=== PATIENT | male | born 1960 | race Caucasian/White ===

== ENCOUNTER 2024-08-16 12:42 | Day surgery (SDC) | payer MEDICARE, SELFPAY ==
[2024-08-16] VITALS (8 sets, daily range): BP systolic 132–149; BP diastolic 83–90; PULSE 64–68; RESP 14–18; TEMP 2.2–36.6; O2SAT 93–100; BMI 41.8
[2024-08-16] MEDS: Lactated Ringers 1,000 ML 15 ML IV (13:29)
[2024-08-16 13:41] LABS: Bedside Glucose 145 mg/dL (74-106)
[2024-08-16] MEDS: Lubricating Jelly 60 GM Tube 30 GM (13:58)
--- NOTE | 2024-08-16 14:09 | PCM.PRE.AN2 ---
ASA Classification* ASA Classification ASA Classification: 3 Assessment & Plan Anesthesia* Anesthesia Assessment Anesthesia Assessment: Discussed sedation and/or anesthesia options, risks, benefits, and alternatives with patient/parents/legal guardian/POA. Questions invited. The patient/parents/legal guardian/POA seems to understand and agrees to proceed with anesthesia plan. Reviewed the physical assessment, medical history, allergy history and patient home medications list prior to surgery/procedure/anesthetic and documented any changes. Performed airway and anesthesia risk assessments. Anesthesia Type Anesthesia Type: MAC History Source History Obtained from:: Patient and Chart Anesthesia Focused Assessment* Temperature: 97.9 F Pulse Rate: 68 Blood Pressure: 132/83 Respiratory Rate: 18 Pulse Ox: 100 Oxygen Delivery Method: Room Air Airway Assessment Mouth opens: >3 cm Mallampati Score: III Teeth Condition: Missing (Patient has 4 remaining teeth. They are tight. 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 When Was Last Pacemaker Check QUESTION #4 FULL TEXT: You/Your Family Experience fever (hyperthermia) with Anesthesia Last Oral Intake Last Oral intake: Last Oral Intake NPO since 22:00 08/16/24 13:14 Meds taken in AM with sips of No 08/16/24 13:14 water? 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 Female No 08/13/24 11:42 HX of Motion Sickness No 08/13/24 11:42 HX of N/V After Surgery No 08/13/24 11:42 Non-Smoker Yes 08/13/24 11:42 Duration of Surgery greater No 08/13/24 11:42 than 60 minutes Number of Risk Factors 1 08/13/24 11:42 PONV Score Low Risk 08/13/24 11:42 Height & Weight Height & Weight: Anesthesia: Height & Weight Height 5 ft 7 in 08/16/24 13:14 Weight: 121 kg 08/16/24 13:14 Body Mass Index (BMI) 41.8 08/16/24 13:14 Respiratory Assessment Respiratory Assessment - bevel gear generator operator: Respiratory Tract Infection Hx - bevel gear generator operator Hx Respiratory Tract Infection No 08/13/24 11:42 STOP Sleep Apnea STOP Sleep Apnea - bevel gear generator operator: STOP Sleep Apnea - bevel gear generator operator Hx Hypertension Yes: CONTROLLED WITH MEDS 08/13/24 11:42 Hx Sleep Apnea No 08/13/24 11:42 CPAP BIPAP Do you snore loudly (louder No 08/13/24 11:42 than talking or can be heard Do you often feel tired/ No 08/13/24 11:42 fatigued/ sleepy during daytime? Has anyone observed you stop No 08/13/24 11:42 breathing during sleep? STOP Results Negative 08/13/24 11:42 QUESTION #5 FULL TEXT : Do you snore loudly (louder than talking or can be heard through closed doors)? 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 Specify any problems Hx of Preganancy in last 3 N/A 08/13/24 11:42 Months Nurse Filling Out Transfusion [email or web address] 08/13/24 11:42 & Questions: Date: 08/13/24 08/13/24 11:42 Time: 11:48 08/13/24 11:42 Patient unable to answer at this time (ie. confused, unrespo /Reproduction History /Reproductive History - bevel gear generator operator: /Reproductive Hx- bevel gear generator operator Hx Now Gestational Age (in weeks): EDC: Hx Hx Para Hx Section SAB Active Medications Active Medications: Current Medications Generic Name Dose Route Start Last Admin Trade Name Freq PRN Reason Stop Dose Admin Lactated Ringer's 1,000 mls @ 15 mls/hr 08/16/24 13:00 08/16/24 13:29 IV 15 mls/hr .Q48H CÉSAR Administration PFSH Medical History Skin cancer Temporal arteritis syndrome Multiple lipomas Wears dentures Wears glasses History of steroid therapy Diabetes Former smoker Hypertension Home Medications ?Medication ?Instructions ?Recorded ?Last Taken ?Type ascorbic acid (vitamin C) 500 mg 1 g PO DAILY 08/13/24 08/15/24 History chewable tablet (Acerola C) aspirin 81 mg tablet,delayed 81 mg PO DAILY 08/13/24 08/13/24 History release (Adult Aspirin Regimen) glipizide 2.5 mg tablet 2.5 mg PO QPM 08/13/24 08/15/24 History lisinopril 20 mg tablet 20 mg PO DAILY 08/13/24 08/15/24 History metformin 1,000 mg tablet 1,000 mg PO BID 08/13/24 08/15/24 History omega 9-jrt-dye-fish oil 1,200 mg 1 cap PO DAILY 08/13/24 08/15/24 History (144 mg-216 mg) capsule (Fish Oil) prednisone 20 mg tablet 40 mg PO BID 08/13/24 08/15/24 History rosuvastatin 5 mg tablet 5 mg PO DAILY 08/13/24 08/15/24 History semaglutide 1 mg/dose (4 mg/3 mL) 1 mg subcut QWEEK 08/13/24 08/10/24 History subcutaneous pen injector (Ozempic) Allergy/AdvReac Type Severity Reaction Status Date / Time Penicillins (PCN) AdvReac Hives Verified 08/14/24 09:47 tirzepatide (From [facility]) AdvReac Hives Verified 08/14/24 09:47 Surgical History (Updated 08/16/24 @ 14:[address] Juan Vance MD) Lipoma Malignant neoplasm determined by biopsy of skin Social History Smoking Status: Former smoker alcohol intake: never substance use type: does not use Review of Systems (Anesthesia) ROS Narrative System reviewed and no additional complaints, except as documented.
--- NOTE | 2024-08-16 14:17 | PCM.HP.BLA ---
History and Physical Date of Admission: 08/16/24 Intake Vital Signs 08/14/2508:45 Height 5 ft 7 in Weight: 271 lb 6 oz BMI 42.5 BP 146/78 H Blood Pressure Location Lt brachial Position Sitting Respiration 18 Pulse 74 Pulse Source Monitor Temp 97.8 F Temp Source Temporal Pulse Oximetry (%) 98 Oxygen Delivery Method room air Intake Visit Reasons: TEMPORAL ARTERY BIOPSY Chief Complaint: temporal artery biospy Accompanied by: Is patient in pain?: No Allergies Penicillins (PCN) Adverse Reaction (Verified 08/14/24 09:47) Hivestirzepatide (From [facility]) Adverse Reaction (Verified 08/14/24 09:47) Hives Medications ?Medication ?Instructions ?Recorded ?Confirmed ?Type ascorbic acid (vitamin C) 500 mg 1 g PO DAILY 08/13/24 08/14/24 History chewable tablet (Acerola C) aspirin 81 mg tablet,delayed 81 mg PO DAILY 08/13/24 08/14/24 History release (Adult Aspirin Regimen) glipizide 2.5 mg tablet 2.5 mg PO QPM 08/13/24 08/14/24 History lisinopril 20 mg tablet 20 mg PO DAILY 08/13/24 08/14/24 History metformin 1,000 mg tablet 1,000 mg PO BID 08/13/24 08/14/24 History omega 5-abn-ofp-fish oil 1,200 mg 1 cap PO DAILY 08/13/24 08/14/24 History (144 mg-216 mg) capsule (Fish Oil) prednisone 20 mg tablet 40 mg PO BID 08/13/24 08/14/24 History rosuvastatin 5 mg tablet 5 mg PO DAILY 08/13/24 08/14/24 History semaglutide 1 mg/dose (4 mg/3 mL) 1 mg subcut QWEEK 08/13/24 08/14/24 History subcutaneous pen injector (Ozempic) Have you fallen in the past year?: No PFSH Medical History (Updated 08/14/24 @ 09:45 by Tamera Zepeda LPN) Skin cancer Temporal arteritis syndrome Multiple lipomas Wears dentures Wears glasses History of steroid therapy Diabetes Former smoker Hypertension Social History (Updated 08/14/24 @ 09:45 by Tamera Zepeda LPN) Smoking Status: Former smoker alcohol intake: never substance use type: does not use HPI HPI HPI: Patient is a 64-year-old male with vision changes in his right eye. He was started on steroids for possible giant cell arteritis. He was sent here for temporal artery biopsy ROS General General: No weight change, appetite, fatigue, colon cancer, breast cancer or weakness HEENT HEENT: Yes eye injury; No difficulty swallowing, eye surgery, swollen glands or hoarseness Endo Endocrine: Yes diabetes mellitus; No thyroid disease, thyroid cancer, Hair loss, heat intolerance or cold intolerance Skin Skin: No rash or changing moles Musc Musculoskeletal: No back problems, arthritis, rheumatoid arthritis, gout or joint pain Cardio Cardiovascular: Yes high blood pressure; No murmur, pacemaker, heart disease, atrial fibrillation, heart attack, heart stent, palpitations, shortness of breath with exertion or chest pain Psych Psychiatric: No depression, anxiety or hearing voices Resp Respiratory: No shortness of breath, No sleep apnea, No cough, No COPD, No asthma, No emphysema and No wheezing Gastro Gastrointestinal: No abdominal pain, No nausea or vomiting, No diarrhea, No constipation, No blood in stool, No acid reflux, No hemorrhoids, No ulcers, No gallbladder problem and No black,tarry stools Alex Hematologic: Yes blood thinners, No blood disorders, No bleeding, No anemia and No blood clots Additional Details: aspirin Neuro Neurologic: No numbness, No tingling and No weakness Exam Const General: cooperative Orientation: alert and oriented x3 HENMT Head: normal to inspection Neck Neck: normal visual inspection and full ROM Chest Chest palpation & inspection: normal inspection of the chest Resp Effort & Inspection: normal respiratory effort Auscultation: clear to auscultation bilaterally Cardio Rate: regular rate Rhythm: regular rhythm GI Inspection: non-distended Palpation: soft and nontender Skin General: no rashes or lesions noted Neuro General: patient alert and patient oriented x3 Extrem General: full ROM Psych Appearance: grossly normal Mental Status: mental status grossly normal Assessment and Plan Assessment and Plan (1) Temporal arteritis syndrome: Status: Acute Plan: The patient has possible temporal arteritis. He was sent here for temporal artery biopsy. I discussed this with him in detail. I discussed the procedure as well as the risks including but not limited to bleeding, infection, nerve injury, hematoma formation. Patient understands the risks and is willing to proceed. I have him on the schedule for [place]jo. Inder Agustin MD Pager: [facility] [address] [place] [address], [address] [place] [address] Office: I have examined the patient and the H&P has been reviewed. There are no clinical changes since date of exam.
--- NOTE | 2024-08-16 14:30 | TEM_PTH ---
PATIENT: DAVID PENALOZA LOC: [facility] [place] U#:[id number] AGE/SX: 64/M ROOM: RE08/16/[address]: Dr. Inder Agustin MD : 1960 BED: DIS: 08/16/2024 SPEC #: [id number] RECD: 08/16/24 15:39 STATUS: NIGEL SCOTTIE #: [id number] MARLEN: 08/16/24 14:[address]: Inder Agustin DEPT: SURGICAL PATHOLOGY RECD BY: Leonard Sneed ENTERED: 08/16/24 15:56 SP TYPE: TEMPORAL OTHR DR: Dr. Elier Acosta, DO Tissues: A - Temporal region Procedures: Elastin Stain (control) Special Stain Group I Surgery Specimen Level IV HEADER OPERATION: Temporal artery biopsy PRE-OP DIAGNOSIS: Temporal arteritis syndrome TISSUE SUBMITTED: A- Right temporal artery biopsy MICROSCOPIC DIAGNOSIS A. Artery, temporal, right, temporal arteritis syndrome, biopsy: - Negative for inflammation and granulomas. - Elastin stain highlights normal internal elastic lamina. MICROSCOPIC DESCRIPTION Slides are reviewed. All matched controls reacted appropriately. These tests were developed and their performance characteristics determined by [facility]. They may not have been cleared or approved by the U.S. Food and Drug Administration. The FDA has determined that such clearance or approval is not necessary.? The above immunohistochemical/dualISH?markers are reviewed by the Pathologist. GROSS DESCRIPTION Received in formalin labeled with the patient's name and date of . Designated as right temporal artery biopsy is a 1.7 cm in length by 0.2 cm in diameter pink-red vessel. Entirely submitted 1 cassette. [place] 08/16/2024 CPT:23728, 44241
[2024-08-16] MEDS: Lidocaine 1% (20 ml mdv) 20 ML Vial (14:59)
--- NOTE | 2024-08-16 15:12 | PCM.OPRPT ---
Operative Report (Standard) Operative Information Date of Procedure: 08/16/24 Pre-Operative Diagnosis: Right temporal arteritis syndrome Post-Operative Diagnosis: Same Surgery/Procedure Performed: Right temporal artery biopsy mobile solutions architect: Yes Produce Department Supervisor: Dameon Humphrey Tasks completed by sales operations assistant: Opening, Closing and Retracting Type of Anesthesia: Local MAC RN Documented Start/Stop Times: Operation Date: 08/16/24 14:30 Case Time Into Pre-Op 08/16/24 12:52 Anesthesia Start 08/16/24 14:32 Into Room 08/16/24 14:32 Procedure Start 08/16/24 14:48 Procedure End 08/16/24 15:06 Anesthesia End 08/16/24 15:10 Out of Room 08/16/24 15:10 Procedure Start Time: 14:48 Procedure Stop Time: 15:06 Select all DRAINS/GRAFTS/IMPLANTS that apply: None Estimated Blood Loss: 5 Specimen collected: Yes Description of specimen(s) removed: Right temporal artery segment Description of surgery: Patient was brought back to the operating room and MAC anesthesia was induced. The right alevism was prepped and draped in usual sterile fashion. Ultrasound was used to localize the temporal artery which was located adjacent to a large vein. The course of the artery was marked and then injected with local anesthetic. Incision was made with a scalpel. Hemostasis was obtained using electrocautery. The artery was identified adjacent to the vein. They were both dissected free. The vein did bleed so it needed to be clipped. The artery was dissected proximally and distally and then clipped on either end and removed. Hemostasis was obtained using small clips. Next the area was irrigated and dried. There was good hemostasis. The skin was closed with a running 4-0 Monocryl suture. Dermabond was applied. Patient was taken to PACU in stable condition. Surgical Findings: None Complications Complications: No Admit VTE Documentation VTE Mechan Device Prophylaxis: SCD's
--- NOTE | 2024-08-16 15:14 | DCINST_ITS ---
Discharge Instructions Diet Discharge Diet: Light diet - advance as tolerated Activity Discharge Activity: May Drive (Tomorrow) and May Shower (Tomorrow) Additional Activity Instructions:: Alternate ibuprofen and Tylenol for pain control Resume aspirin and Ozempic on Monday Dressing / Incision Call your doctor if your incision/area has: Continuous Slow Oozing, Sudden Increased Bleeding, Increased Pain/ Swelling, Increased Redness, Foul Smelling Discharge and Swelling at the incision site Call your doctor if you observe: Fever of 101 or Higher Cleanse incision/area with: Soap & Water Follow Up Care Please Follow Up With: Inder Agustin MD When: Please call to schedule 2 week follow up appointment. [phone] Test Results: Test results from this visit will be discussed in further detail at your follow- up appointment, if applicable. Discharge Plan Admission Attending Provider: Inder Agustin Primary Care Provider: Elier Acosta Instructions Print Language: Polish Discharge Orders/Prescriptions Prescriptions: No Action glipizide 2.5 mg tablet 2.5 mg PO QPM lisinopril 20 mg tablet 20 mg PO DAILY prednisone 20 mg tablet 40 mg PO BID metformin 1,000 mg tablet 1,000 mg PO BID rosuvastatin 5 mg tablet 5 mg PO DAILY Ozempic 1 mg/dose (4 mg/3 mL) pen injector 1 mg subcut QWEEK ascorbic acid (vitamin C) [Acerola C] 500 mg tablet,chewable 1 g PO DAILY omega 9-nmc-ura-fish oil [Fish Oil] 1,200 (144-216) mg capsule 1 cap PO DAILY aspirin [Adult Aspirin Regimen] 81 mg tablet,delayed release (DR/EC) 81 mg PO DAILY Referrals / Follow Up: Elier Acosta DO [Primary Care Provider] - Disposition Disposition (needs filled in before D/C Order can be placed): Home, Self Care
--- NOTE | 2024-08-16 15:17 | PCM.POST.ANE ---
Anesthesia: Postop Eval I Current Vital Signs Temperature: 36 F Pulse Rate: 66 Blood Pressure: 135/84 Respiratory Rate: 14 Pulse Ox: 93 Assessment Airway patent: Yes Spontaneous unlabored respirations: Yes nausea: No Vomiting: No Anesthesia Complication: No Fluid Hydration Crystalloid volume administer (ml): 700 Total IV fluid infused: 700 Progress Note Anesthesia document: Postop Eval 1 completed: Yes
--- NOTE | 2024-08-19 10:28 | POSTOPAN2_ITS ---
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 Spontaneous unlabored Yes 08/16/24 15:18 FARM [email or web address] respirations Mental status nausea No 08/16/24 15:18 FARM [email or web address] Vomiting No 08/16/24 15:18 FARM [email or web address] Anesthesia Postop Eval I: Fluid Summary Crystalloid volume administer 700 08/16/24 15:18 FARM [email or web address] (ml) Colloids volume administered ( ml) Blood Product volume administered (ml) Total IV fluid infused 700 08/16/24 15:18 FARM [email or web address] Anesthesia Postop Eval I: Summary Notes Anesthesia Complication No 08/16/24 15:18 [email or web address] [email or web address] Anesthesia Complication Comment: Post-operative progress note Anesthesia: Postop Eval II Evaluation Mental status: Awake and Calm Pain Level: 1 nausea: No Vomiting: No Complications Anesthesia Complication: No
--- NOTE | 2024-08-19 10:28 | PCM.POSTANE2 ---
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 Spontaneous unlabored Yes 08/16/24 15:18 [email or web address] [email or web address] respirations Mental status nausea No 08/16/24 15:18 CHINESE [email or web address] Vomiting No 08/16/24 15:18 [email or web address] Anesthesia Postop Eval I: Fluid Summary Crystalloid volume administer 700 08/16/24 15:18 [email or web address] (ml) Colloids volume administered ( ml) Blood Product volume administered (ml) Total IV fluid infused 700 08/16/24 15:18 [email or web address] Anesthesia Postop Eval I: Summary Notes Anesthesia Complication No 08/16/24 15:18 [email or web address] Anesthesia Complication Comment: Post-operative progress note Anesthesia: Postop Eval II Evaluation Mental status: Awake and Calm Pain Level: 1 nausea: No Vomiting: No Complications Anesthesia Complication: No
== END 2024-08-16 16:18 | disposition home or self-care (01) ==
LOC: SDC 12:46 → AC 12:48
PROVIDERS: Referring Provider Surgery; Visit Provider Surgery
PROC: (CPT 37609; principal; 2024-08-16 14:15)
DX: M31.6 Other giant cell arteritis (principal); E11.9 Type 2 diabetes mellitus without complications; I10 Essential (primary) hypertension; Z79.82 Long term (current) use of aspirin; Z79.84 Long term (current) use of oral hypoglycemic drugs; Z79.85 Long-term (current) use of injectable non-insulin antidiabetic drugs; Z79.899 Other long term (current) drug therapy; Z87.891 Personal history of nicotine dependence
CPT/HCPCS: 37609; 00352; 82962; 88305; 88312; A4648; J2405

== ENCOUNTER → 2024-09-11 | Outpatient (CLI) | payer MEDICARE, SELFPAY ==
--- NOTE | 2024-09-11 07:52 | CDU_ITS ---
Reason For Study Reason For Study: Rt Eye Ischemic Optic Neuropathy Rt. Velocities/BP Lt. Velocities/BP Prox CCA 134.4/26.7 cm/sec. Prox CCA 110.7/24.8 cm/sec. Mid CCA 84.6/19.5 cm/sec. Mid CCA 103.4/23.0 cm/sec. Dist CCA 79.0/19.7 cm/sec. Dist CCA 125.3/26.7 cm/sec. Prox ICA 72.9/30.2 cm/sec. Prox ICA 85.3/21.5 cm/sec. Mid ICA 46.9/17.1 cm/sec. Mid ICA 77.3/30.9 cm/sec. Dist ICA 43.3/18.0 cm/sec. Dist ICA 97.4/35.8 cm/sec. Rt. ICA/CCA = 0.9. Lt. ICA/CCA = 0.9. Prox ECA 87.5/10.6 cm/sec. Prox ECA 90.3/12.8 cm/sec. Rt. Vert. 49.7/17.6 cm/sec. Lt. Vert. 35.4/9.2 cm/sec. Right Extracranial There is homogeneous, smooth atherosclerotic plaque noted in the right common carotid artery. There is heterogeneous, irregular atherosclerotic plaque noted in the right internal carotid artery. There is intimal thickening but no significant atherosclerotic plaque noted in the right external carotid artery. Antegrade flow is noted in the right vertebral artery. Left Extracranial There is homogeneous, smooth atherosclerotic plaque noted in the left common carotid artery. There is heterogeneous, irregular atherosclerotic plaque noted in the left internal carotid artery. There is intimal thickening but no significant atherosclerotic plaque noted in the left external carotid artery. Antegrade flow is noted in the left vertebral artery. Procedure Carotid Duplex [id number]. This is a Carotid Duplex examination using B-mode, color flow and specral Doppler. The exam was diagnostic. Exam performed in department. VL/Carotid Duplex Ultrasound Interpretation Summary Mild (<50%) stenosis right extracranial internal carotid. Mild (<50%) stenosis left extracranial internal carotid. Patent and antegrade vertebrals bilaterally. Ordering Physician: Elier Hawley Referring Physician: Elier Acosta Performed By: Saroj Beltrán RVT
== END | disposition home or self-care (01) ==
PROVIDERS: Referring Provider Ophthalmology; Visit Provider Ophthalmology
DX: H47.011 Ischemic optic neuropathy, right eye (principal); I65.23 Occlusion and stenosis of bilateral carotid arteries
CPT/HCPCS: 93880